=== PATIENT | female | born 1950 | race Caucasian/White ===

== ENCOUNTER 2018-08-01 16:00 | Observation (INO) | payer MEDICARE ==
[~2018-08-01] VITALS: Ht 160 cm; Wt 117.0 kg
[~2018-08-01 16:00] MED LIST: ALBU90OI INH; ALBU90OI6; ALBU90OI6 INH; ALLO300 PO; AMLO10 PO; AMOX500 PO; ANAS1 PO; ASCO1ER PO; ASCO500 PO; ASPI81CH PO; ASPI81EC; ATOR10; Allergy Medicat25 MG; BUPR150T2; CALGLU500 PO; CELE100; CITA20; CITA20 PO; CLAR500; CLIN300 PO; CYAN500 PO; FISH OIL PO; FLUT110OIA IH; FOSI10; FURO20; FURO40; FURO40 PO; GABA300 PO; HYDACE5 PO; HYDGUAL120 PO; LETR2.5 PO; LISI20; LORA.5 PO; LORA1; LORA1 PO; LOSARTAN POTAS100 MG PO; METF500 PO; NAPR500 PO; O; OLME20; OLME20 PO; OMEP20ER; OMEP20ER PO; OXYACE5T PO; PANT40 PO; POTA10T PO; POTA20PAC; POTCHL10ER; POTCHL20ER PO; PROACE100; PROM25 PO; QUIN325; RABE20; ROFE25; SIMV10 PO; Ultram50 MG PO; VITAMIN D31000 UNIT PO; VITB100 PO; Vitamin C100 M1 PO; [UNRECOGNIZED DRUG - OTHER] PO
[2018-08-01 17:17] LABS: BASOPHILS ABSOLUTE AUTO 0.03 K/mm3 (0.00-0.23); BASOPHILS PERCENT AUTO 1 % (0-2); EOSINOPHILS ABSOLUTE AUTO 0.13 K/mm3 (0.00-0.68); EOSINOPHILS PERCENT AUTO 2 % (0-6); Hematocrit 39.5 % (33.0-51.0); Hemoglobin 12.5 g/dL (11.5-16.0); IMMATURE GRAN ABSOLUTE AUTO 0.03 K/mm3 (0.00-0.10); IMMATURE GRAN PERCENT AUTO 1 % (0-1); LYMPHOCYTES ABSOLUTE AUTO 1.86 K/mm3 (0.84-5.20); LYMPHOCYTES PERCENT AUTO 29 % (21-46); MONOCYTES ABSOLUTE AUTO 0.69 K/mm3 (0.16-1.47); MONOCYTES PERCENT AUTO 11 % (4-13); Mean Corpuscular HGB 31.1 pg (26.0-34.0); Mean Corpuscular HGB Conc 31.6 g/dL (31.5-36.5); Mean Corpuscular Volume 98 fL (80-100); Mean Platelet Volume 11.2 fL (9.1-12.4); NEUTROPHILS ABSOLUTE AUTO 3.65 K/mm3 (1.96-9.15); NEUTROPHILS PERCENT AUTO 57 % (41-73); Platelet Count 249 K/mm3 (150-400); RDW Coefficient Variation 13.3 % (11.7-14.2); Red Blood Cell Count 4.02 M/mm3 (3.80-5.20); White Blood Cell Count 6.39 K/mm3 (4.00-11.30)
[2018-08-01 17:38] LABS: Alanine Aminotransfer (ALT/SGP 26 U/L (12-78); Albumin, Blood 3.7 g/dL (3.4-5.0); Albumin/Globulin Ratio 1.1 (0.8-1.8); Alk Phos 69 U/L (50-136); Anion Gap 5 mmol/L (6-16); Aspartate Aminotrans (AST/SGOT 11 U/L (12-37); Bilirubin, Total 0.3 mg/dL (0.1-1.0); Blood Urea Nitrogen 18 mg/dL (8-24); Bun/Creatinine Ratio 16.8 (12.0-20.0); CO2, Blood 29 mmol/L (21-32); Chloride, Blood 107 mmol/L (98-108); Creatinine, Blood 1.07 mg/dL (0.40-1.00); Globulin, Blood 3.3 g/dL (2.2-4.0); Glomerular Filtration Rate 55 (60-); Glucose, Blood 120 mg/dL (70-99); Potassium, Blood 4.2 mmol/L (3.5-5.5); Sodium, Blood 141 mmol/L (136-145); Troponin I <0.015 ng/mL (0.000-0.040)
[2018-08-01] MEDS ORDERED: PRAV20 PO (18:01)
[2018-08-01] MEDS ORDERED: PRIM50 PO (18:02)
[2018-08-01] MEDS ORDERED: Inderal40 MG PO (18:02)
[2018-08-01] MEDS ORDERED: GABA100 PO (20:49)
[2018-08-01] MEDS ORDERED: MELA3 PO (20:51)
[2018-08-02 05:12] LABS: Hematocrit 35.7 % (33.0-51.0); Hemoglobin 11.3 g/dL (11.5-16.0); Mean Corpuscular HGB 30.6 pg (26.0-34.0); Mean Corpuscular HGB Conc 31.7 g/dL (31.5-36.5); Mean Corpuscular Volume 97 fL (80-100); Mean Platelet Volume 11.3 fL (9.1-12.4); Platelet Count 215 K/mm3 (150-400); RDW Coefficient Variation 13.3 % (11.7-14.2); RDW Standard Deviation 47.3 fL (35.1-46.3); Red Blood Cell Count 3.69 M/mm3 (3.80-5.20); White Blood Cell Count 7.07 K/mm3 (4.00-11.30)
[2018-08-02 05:47] LABS: Anion Gap 8 mmol/L (6-16); Blood Urea Nitrogen 16 mg/dL (8-24); Bun/Creatinine Ratio 17.4 (12.0-20.0); CO2, Blood 26 mmol/L (21-32); Calcium, Blood 8.4 mg/dL (8.5-10.1); Chloride, Blood 109 mmol/L (98-108); Creatinine, Blood 0.92 mg/dL (0.40-1.00); Glomerular Filtration Rate >60 (60-); Glucose, Blood 107 mg/dL (70-99); Sodium, Blood 143 mmol/L (136-145)
== END 2018-08-02 12:15 | disposition home or self-care (01) ==
LOC: ER 16:00 → PCU 16:01
PROVIDERS: Nurse Practitioner Acute Care; Physician Assistant
DX: R07.9 Chest pain, unspecified (principal); M10.9 Gout, unspecified; E11.22 Type 2 diabetes mellitus with diabetic chronic kidney disease; I12.9 Hypertensive chronic kidney disease with stage 1 through stage 4 chronic kidney disease, or unspecified chronic kidney disease; N18.3 Chronic kidney disease, stage 3 (moderate); G47.30 Sleep apnea, unspecified; R00.1 Bradycardia, unspecified; E66.01 Morbid (severe) obesity due to excess calories; Z68.42 Body mass index [BMI] 45.0-49.9, adult; Z79.82 Long term (current) use of aspirin; Z79.899 Other long term (current) drug therapy; Z88.5 Allergy status to narcotic agent; Z79.01 Long term (current) use of anticoagulants
CPT/HCPCS: 36415; 71046; 80048; 80053; 82947; 83880; 84484; 85025; 85027; 93005; 93010; 94640; 94762; 96372; 99285-25; G0378; J1650; J7030

== ENCOUNTER 2019-01-13 13:26 | Emergency (ER) | payer MEDICARE ==
[~2019-01-13] VITALS: Ht 160 cm; Wt 113.4 kg
[~2019-01-13 13:26] MED LIST changes: +GABA100 PO; +Inderal40 MG PO; +MELA3 PO; +PRAV20 PO; +Primidone50 MG PO
[2019-01-13] MEDS ORDERED: MELATONIN5 M1 PO (15:18)
[2019-01-13] MEDS ORDERED: LORA.5 PO (15:18)
[2019-01-13] MEDS ORDERED: CRANBERRY450 MG PO (15:19)
[2019-01-13] MEDS ORDERED: CYAN500 PO (15:20)
[2019-01-13] MEDS ORDERED: CALCIUM (15:20)
[2019-01-13] MEDS ORDERED: Apple Cider Vi300 MG PO (15:20)
[2019-01-13] MEDS ORDERED: ASCO500 PO (15:21)
[2019-01-13] MEDS ORDERED: ERGO400 (15:21)
[2019-01-13] MEDS ORDERED: Percocet 5-3251 EACH PO (16:55)
== END 2019-01-13 17:18 | disposition home or self-care (01) ==
LOC: ER 13:26
DX: S62.324A Displaced fracture of shaft of fourth metacarpal bone, right hand, initial encounter for closed fracture (principal); S20.212A Contusion of left front wall of thorax, initial encounter; W18.30XA Fall on same level, unspecified, initial encounter; Z88.1 Allergy status to other antibiotic agents; Z91.011 Allergy to milk products; Z91.048 Other nonmedicinal substance allergy status; Z88.8 Allergy status to other drugs, medicaments and biological substances; Z88.7 Allergy status to serum and vaccine; Z79.899 Other long term (current) drug therapy; Z79.84 Long term (current) use of oral hypoglycemic drugs; Z79.82 Long term (current) use of aspirin; E11.9 Type 2 diabetes mellitus without complications; Z85.3 Personal history of malignant neoplasm of breast; Z87.891 Personal history of nicotine dependence; Z85.42 Personal history of malignant neoplasm of other parts of uterus
CPT/HCPCS: 29125; 71101; 73110; 99283-25

== ENCOUNTER → 2020-01-16 | Outpatient (CLI) | payer MEDICARE ==
[~2020-01-16] MED LIST changes: +Apple Cider Vi300 MG PO; +CALCIUM; +CRANBERRY450 MG PO; +ERGO400; +MELATONIN5 M1 PO; +Percocet 5-3251 EACH PO
[2020-01-16 17:48] LABS: Creatinine, Urine Random 45.5 mg/dL (27.00-270.00); Microalb/Creat Ratio UR, Rand 12.615 mg/g (0.000-30.000); Microalbumin, Random Urine 5.74 mg/L (0.000-20.000)
== END ==
LOC: LAB EV 12:49
PROVIDERS: Student in an Organized Health Care Education/Training Program
DX: E11.65 Type 2 diabetes mellitus with hyperglycemia (principal)
CPT/HCPCS: 82043; 82570

== ENCOUNTER 2020-11-07 15:31 | Emergency (ER) | payer MEDICARE ==
[~2020-11-07] VITALS: Ht 160 cm; Wt 124.7 kg
[2020-11-07] MEDS ORDERED: Aspir 8181 MG PO (15:48)
[2020-11-07] MEDS ORDERED: Percocet 5-3251 EACH PO (19:08)
== END 2020-11-07 19:20 | disposition home or self-care (01) ==
LOC: ER 15:31
DX: S52.502A Unspecified fracture of the lower end of left radius, initial encounter for closed fracture (principal); E11.9 Type 2 diabetes mellitus without complications; Z91.09 Other allergy status, other than to drugs and biological substances; Z91.011 Allergy to milk products; Z88.5 Allergy status to narcotic agent; Z79.84 Long term (current) use of oral hypoglycemic drugs; Z88.7 Allergy status to serum and vaccine; Z79.899 Other long term (current) drug therapy; Z87.891 Personal history of nicotine dependence; V58.4XXA Person boarding or alighting a pick-up truck or van injured in noncollision transport accident, initial encounter
CPT/HCPCS: 25605; 70450; 73090; 96374-59; 96375-59; 96376-59; 99284-25; A9270; J2270; J2405; J3010

== ENCOUNTER 2020-11-12 11:27 | Day surgery (SDC) | payer MEDICARE ==
[~2020-11-12] VITALS: Ht 160 cm; Wt 124.2 kg
[~2020-11-12 11:27] MED LIST changes: +Aspir 8181 MG PO
[2020-11-12] MEDS ORDERED: ACET500 (12:28)
[2020-11-12] MEDS ORDERED: ALBU90OI INH (12:52)
--- NOTE | 2020-11-12 13:29 | NUR ---
11/12/20 1329 Rex Reich PT NOTED TO HAVE SCRAPES TO BACK OF ELBOW WITHOUT BROKEN SKIN.
== END 2020-11-12 15:45 | disposition home or self-care (01) ==
LOC: ORSCSDS 11:27
PROVIDERS: Orthopaedic Surgery
PROC: 0PSJ04Z Reposition Left Radius with Internal Fixation Device, Open Approach (ICD-10-PCS; principal; 2020-11-12 13:00)
DX: S52.552A Other extraarticular fracture of lower end of left radius, initial encounter for closed fracture (principal); I10 Essential (primary) hypertension; J45.909 Unspecified asthma, uncomplicated; G47.33 Obstructive sleep apnea (adult) (pediatric); Z87.891 Personal history of nicotine dependence; E11.9 Type 2 diabetes mellitus without complications; N18.30 Chronic kidney disease, stage 3 unspecified; E66.01 Morbid (severe) obesity due to excess calories; Z68.42 Body mass index [BMI] 45.0-49.9, adult; Z79.84 Long term (current) use of oral hypoglycemic drugs; Z79.899 Other long term (current) drug therapy
CPT/HCPCS: 82947; C1713; J0171; J0360; J0690; J1100; J1885; J2250; J2405; J2704; J3010; J7120

== ENCOUNTER 2021-02-19 11:08 | Emergency (ER) | payer MEDICARE ==
[~2021-02-19] VITALS: Ht 160 cm; Wt 122.5 kg
[~2021-02-19 11:08] MED LIST changes: +ACET500
[2021-02-19 11:44] LABS: BASOPHILS ABSOLUTE AUTO 0.04 K/mm3 (0.00-0.23); BASOPHILS PERCENT AUTO 1 % (0-2); EOSINOPHILS ABSOLUTE AUTO 0.13 K/mm3 (0.00-0.68); EOSINOPHILS PERCENT AUTO 2 % (0-6); Hematocrit 40.2 % (33.0-51.0); Hemoglobin 12.6 g/dL (11.5-16.0); IMMATURE GRAN ABSOLUTE AUTO 0.03 K/mm3 (0.00-0.10); IMMATURE GRAN PERCENT AUTO 0 % (0-1); LYMPHOCYTES ABSOLUTE AUTO 1.79 K/mm3 (0.84-5.20); LYMPHOCYTES PERCENT AUTO 26 % (21-46); MONOCYTES ABSOLUTE AUTO 0.61 K/mm3 (0.16-1.47); MONOCYTES PERCENT AUTO 9 % (4-13); Mean Corpuscular HGB 31.4 pg (26.0-34.0); Mean Corpuscular HGB Conc 31.3 g/dL (31.5-36.5); Mean Corpuscular Volume 100 fL (80-100); Mean Platelet Volume 11.3 fL (9.1-12.4); NEUTROPHILS ABSOLUTE AUTO 4.19 K/mm3 (1.96-9.15); NEUTROPHILS PERCENT AUTO 62 % (41-73); Platelet Count 250 K/mm3 (150-400); RDW Coefficient Variation 13.7 % (11.7-14.2); RDW Standard Deviation 50.2 fL (35.1-46.3); Red Blood Cell Count 4.01 M/mm3 (3.80-5.20); White Blood Cell Count 6.79 K/mm3 (4.00-11.30)
[2021-02-19 12:09] LABS: Alanine Aminotransfer (ALT/SGP 21 U/L (12-78); Albumin, Blood 3.7 g/dL (3.4-5.0); Albumin/Globulin Ratio 1.1 (0.8-1.8); Alk Phos 55 U/L (50-136); Anion Gap 3 mmol/L (6-16); Aspartate Aminotrans (AST/SGOT 14 U/L (12-37); Bilirubin, Total 0.4 mg/dL (0.1-1.0); Blood Urea Nitrogen 20 mg/dL (8-24); Bun/Creatinine Ratio 18.7 (12.0-20.0); CO2, Blood 30 mmol/L (21-32); Calcium, Blood 9.6 mg/dL (8.5-10.1); Chloride, Blood 107 mmol/L (98-108); Creatinine, Blood 1.07 mg/dL (0.40-1.00); Globulin, Blood 3.3 g/dL (2.2-4.0); Glomerular Filtration Rate 51 (60-); Glucose, Blood 153 mg/dL (70-99); Potassium, Blood 4.6 mmol/L (3.5-5.5); Sodium, Blood 140 mmol/L (136-145); Troponin I <0.015 ng/mL (0.000-0.040)
== END 2021-02-19 13:56 | disposition home or self-care (01) ==
LOC: ER 11:08
PROVIDERS: Emergency Medicine
DX: R00.2 Palpitations (principal); R42 Dizziness and giddiness; E11.9 Type 2 diabetes mellitus without complications; Z79.84 Long term (current) use of oral hypoglycemic drugs; Z79.899 Other long term (current) drug therapy
CPT/HCPCS: 36415; 80053; 84484; 85025; 93005; 93010; 99285-25

== ENCOUNTER → 2022-03-21 | Outpatient (CLI) | payer MEDICARE ==
[2022-03-21 14:32] LABS: Microalbumin, Random Urine 11.4 mg/L (0.000-20.000)
== END | disposition home or self-care (01) ==
LOC: LAB 13:00 → LAB SHORT 13:00
PROVIDERS: Internal Medicine Endocrinology, Diabetes & Metabolism
DX: E11.29 Type 2 diabetes mellitus with other diabetic kidney complication (principal)
CPT/HCPCS: 82043; 82570

== ENCOUNTER 2023-03-16 11:08 | Emergency (ER) | payer MEDICARE ==
[~2023-03-16] VITALS: Ht 160 cm; Wt 122.5 kg
[~2023-03-16 11:08] MED LIST changes: -ERGO400; +ERGO400 PO
[2023-03-16 11:45] LABS: BASOPHILS ABSOLUTE AUTO 0.02 K/mm3 (0.00-0.23); BASOPHILS PERCENT AUTO 0 % (0-2); EOSINOPHILS ABSOLUTE AUTO 0.01 K/mm3 (0.00-0.68); EOSINOPHILS PERCENT AUTO 0 % (0-6); Hematocrit 39.2 % (33.0-51.0); Hemoglobin 12.9 g/dL (11.5-16.0); IMMATURE GRAN ABSOLUTE AUTO 0.03 K/mm3 (0.00-0.10); IMMATURE GRAN PERCENT AUTO 0 % (0-1); LYMPHOCYTES ABSOLUTE AUTO 1.18 K/mm3 (0.84-5.20); LYMPHOCYTES PERCENT AUTO 17 % (21-46); MONOCYTES ABSOLUTE AUTO 0.96 K/mm3 (0.16-1.47); MONOCYTES PERCENT AUTO 13 % (4-13); Mean Corpuscular HGB 31.9 pg (26.0-34.0); Mean Corpuscular HGB Conc 32.9 g/dL (31.5-36.5); Mean Corpuscular Volume 97 fL (80-100); Mean Platelet Volume 11.3 fL (9.1-12.4); NEUTROPHILS ABSOLUTE AUTO 4.95 K/mm3 (1.96-9.15); NEUTROPHILS PERCENT AUTO 69 % (41-73); Platelet Count 208 K/mm3 (150-400); RDW Coefficient Variation 13.9 % (11.7-14.2); Red Blood Cell Count 4.04 M/mm3 (3.80-5.20); White Blood Cell Count 7.15 K/mm3 (4.00-11.30)
[2023-03-16 11:55] LABS: Albumin, Blood 3.2 g/dL (3.4-5.0); Albumin/Globulin Ratio 0.9 (0.8-1.8); Bilirubin, Total 0.4 mg/dL (0.1-1.0); Bun/Creatinine Ratio 20.5 (12.0-20.0); Calcium, Blood 8.5 mg/dL (8.5-10.1); Creatinine, Blood 1.17 mg/dL (0.40-1.00); Globulin, Blood 3.5 g/dL (2.2-4.0); Potassium, Blood 4.4 mmol/L (3.5-5.5); Total Protein, Blood 6.7 g/dL (6.4-8.2)
[2023-03-16 15:04] LABS: Source, Urine Clean Catch
[2023-03-16 15:17] LABS: Appearance, Urine Hazy (Clear); Bilirubin, Urine Neg (Neg); Blood, Urine Neg (Neg); Color, Urine Yellow (P-Yellow); Glucose Qualitative, Urine Neg (Neg); Ketones, Urine Neg (Neg); Leukocyte Esterase, Urine Neg (Neg); Nitrite, Urine Neg (Neg); Protein, Urine 1+ (Neg); Urobilinogen, Urine NORM (Normal)
[2023-03-16 15:28] LABS: Bacteria Mod /hpf; Red Blood Cells, Urine 0-2 /hpf (0-2); Squamous Epithelial Cells Few /hpf (Few); White Blood Cells, Urine 0-2 /hpf (0-5)
[2023-03-16 16:16] LABS: BASOPHILS ABSOLUTE AUTO 0.01 K/mm3 (0.00-0.23); BASOPHILS PERCENT AUTO 0 % (0-2); EOSINOPHILS ABSOLUTE AUTO 0.01 K/mm3 (0.00-0.68); EOSINOPHILS PERCENT AUTO 0 % (0-6); Hemoglobin 13.3 g/dL (11.5-16.0); IMMATURE GRAN ABSOLUTE AUTO 0.03 K/mm3 (0.00-0.10); IMMATURE GRAN PERCENT AUTO 1 % (0-1); LYMPHOCYTES ABSOLUTE AUTO 1.14 K/mm3 (0.84-5.20); LYMPHOCYTES PERCENT AUTO 19 % (21-46); MONOCYTES ABSOLUTE AUTO 0.81 K/mm3 (0.16-1.47); MONOCYTES PERCENT AUTO 13 % (4-13); Mean Corpuscular HGB 31.4 pg (26.0-34.0); Mean Corpuscular HGB Conc 32.4 g/dL (31.5-36.5); Mean Corpuscular Volume 97 fL (80-100); Mean Platelet Volume 11.5 fL (9.1-12.4); NEUTROPHILS ABSOLUTE AUTO 4.17 K/mm3 (1.96-9.15); NEUTROPHILS PERCENT AUTO 68 % (41-73); Platelet Count 174 K/mm3 (150-400); RDW Standard Deviation 49.9 fL (35.1-46.3); Red Blood Cell Count 4.24 M/mm3 (3.80-5.20); White Blood Cell Count 6.17 K/mm3 (4.00-11.30)
[2023-03-16 16:32] LABS: Bun/Creatinine Ratio 20.3 (12.0-20.0); Calcium, Blood 9.2 mg/dL (8.5-10.1); Creatinine, Blood 1.18 mg/dL (0.40-1.00); Potassium, Blood 4.4 mmol/L (3.5-5.5)
[2023-03-16 16:42] LABS: Magnesium, Blood 2.2 mg/dL (1.6-2.4); Phosphorus, Blood 3.1 mg/dL (2.5-4.9)
[2023-03-16 16:54] LABS: Influenza A, PCR NEGATIVE (NEGATIVE); Influenza B, PCR NEGATIVE (NEGATIVE); Resp Syncytial Virus, PCR NEGATIVE (NEGATIVE)
[2023-03-16 17:30] VITALS: BP 152/103
[2023-03-16] MEDS ORDERED: AZIT250 PO (18:08)
[2023-03-16 20:47] LABS: SARS-Cov-2 (COVID-19) PCR, MMC POSITIVE (NEGATIVE)
== END 2023-03-16 18:20 | disposition home or self-care (01) ==
LOC: ER 11:08
PROVIDERS: Emergency Medicine; Physician Assistant
DX: S09.90XA Unspecified injury of head, initial encounter (principal); U07.1 COVID-19; E11.9 Type 2 diabetes mellitus without complications; G47.30 Sleep apnea, unspecified; J45.909 Unspecified asthma, uncomplicated; I10 Essential (primary) hypertension; Z79.84 Long term (current) use of oral hypoglycemic drugs; Z79.82 Long term (current) use of aspirin; Z79.899 Other long term (current) drug therapy; Z91.048 Other nonmedicinal substance allergy status; Z88.7 Allergy status to serum and vaccine; Z91.011 Allergy to milk products; W18.30XA Fall on same level, unspecified, initial encounter; Y93.G3 Activity, cooking and baking; Y92.000 Kitchen of unspecified non-institutional (private) residence as the place of occurrence of the external cause
CPT/HCPCS: 0241U; 71045; 80048; 80053; 81001; 83735; 84100; 84484; 85025; 87086; 93005; 93010; 94640; 94664; 96374; 99285-25; J2930

== ENCOUNTER 2023-03-18 13:01 | Inpatient (IN) | payer MEDICARE ==
[~2023-03-18] VITALS: Ht 160 cm; Wt 122.0 kg
[~2023-03-18 13:01] MED LIST changes: +AZIT250 PO
[2023-03-18 14:38] LABS: Albumin, Blood 2.9 g/dL (3.4-5.0); Albumin/Globulin Ratio 0.8 (0.8-1.8); Bilirubin, Total 0.5 mg/dL (0.1-1.0); Bun/Creatinine Ratio 19.4 (12.0-20.0); Creatinine, Blood 0.98 mg/dL (0.40-1.00); Globulin, Blood 3.5 g/dL (2.2-4.0); Potassium, Blood 4.3 mmol/L (3.5-5.5); Total Protein, Blood 6.4 g/dL (6.4-8.2)
[2023-03-18 14:40] LABS: BASOPHILS ABSOLUTE AUTO 0.02 K/mm3 (0.00-0.23); BASOPHILS PERCENT AUTO 0 % (0-2); EOSINOPHILS PERCENT AUTO 0 % (0-6); Hematocrit 36.4 % (33.0-51.0); IMMATURE GRAN ABSOLUTE AUTO 0.05 K/mm3 (0.00-0.10); IMMATURE GRAN PERCENT AUTO 1 % (0-1); LYMPHOCYTES ABSOLUTE AUTO 0.87 K/mm3 (0.84-5.20); LYMPHOCYTES PERCENT AUTO 9 % (21-46); MONOCYTES ABSOLUTE AUTO 0.79 K/mm3 (0.16-1.47); MONOCYTES PERCENT AUTO 8 % (4-13); Mean Corpuscular HGB 31.3 pg (26.0-34.0); Mean Corpuscular Volume 95 fL (80-100); Mean Platelet Volume 11.6 fL (9.1-12.4); NEUTROPHILS ABSOLUTE AUTO 8.06 K/mm3 (1.96-9.15); NEUTROPHILS PERCENT AUTO 82 % (41-73); Platelet Count 205 K/mm3 (150-400); RDW Coefficient Variation 13.8 % (11.7-14.2); RDW Standard Deviation 48.4 fL (35.1-46.3); Red Blood Cell Count 3.83 M/mm3 (3.80-5.20); White Blood Cell Count 9.79 K/mm3 (4.00-11.30)
[2023-03-18 18:12] VITALS: BP 130/66
[2023-03-18] MEDS ORDERED: Acetaminophen650 M1 PO (18:28)
[2023-03-18] MEDS ORDERED: FURO40 PO (18:36)
--- NOTE | 2023-03-18 18:45 | NUR ---
PT ARRIVED AT 1815 AOX4 ON 2L O2. PT DOES HAVE A MILD COUGH. NO DISTRESS NOTED. CALL LIGHT WITHIN REACH. ENHANCED PRECAUTIONS IN PLACE. WILL CONTINUE TO MONITOR. IGNITION ASSESSMENT COMPLETED AND NO HAZARDS FOUND. PT VERBALIZED UNDERSTANDING.
[2023-03-18 19:56] VITALS: BP 133/64
[2023-03-19 03:21] VITALS: BP 145/68
[2023-03-19 05:48] LABS: BASOPHILS ABSOLUTE AUTO 0.01 K/mm3 (0.00-0.23); BASOPHILS PERCENT AUTO 0 % (0-2); EOSINOPHILS PERCENT AUTO 0 % (0-6); Hematocrit 36.5 % (33.0-51.0); Hemoglobin 11.8 g/dL (11.5-16.0); IMMATURE GRAN ABSOLUTE AUTO 0.08 K/mm3 (0.00-0.10); IMMATURE GRAN PERCENT AUTO 1 % (0-1); LYMPHOCYTES PERCENT AUTO 9 % (21-46); MONOCYTES ABSOLUTE AUTO 0.44 K/mm3 (0.16-1.47); MONOCYTES PERCENT AUTO 5 % (4-13); Mean Corpuscular HGB 31.2 pg (26.0-34.0); Mean Corpuscular HGB Conc 32.3 g/dL (31.5-36.5); Mean Corpuscular Volume 97 fL (80-100); Mean Platelet Volume 11.7 fL (9.1-12.4); NEUTROPHILS ABSOLUTE AUTO 7.81 K/mm3 (1.96-9.15); NEUTROPHILS PERCENT AUTO 85 % (41-73); Platelet Count 222 K/mm3 (150-400); RDW Coefficient Variation 13.6 % (11.7-14.2); RDW Standard Deviation 48.4 fL (35.1-46.3); Red Blood Cell Count 3.78 M/mm3 (3.80-5.20); White Blood Cell Count 9.14 K/mm3 (4.00-11.30)
[2023-03-19 06:14] LABS: Albumin, Blood 2.7 g/dL (3.4-5.0); Albumin/Globulin Ratio 0.7 (0.8-1.8); Bilirubin, Total 0.3 mg/dL (0.1-1.0); Bun/Creatinine Ratio 23.6 (12.0-20.0); Calcium, Blood 8.8 mg/dL (8.5-10.1); Creatinine, Blood 1.1 mg/dL (0.40-1.00); Globulin, Blood 3.9 g/dL (2.2-4.0); Potassium, Blood 4.3 mmol/L (3.5-5.5); Total Protein, Blood 6.6 g/dL (6.4-8.2)
--- NOTE | 2023-03-19 07:04 | NUR ---
SHIFT SUMMARY PT SITTING UP IN BED EATING DINNER, PT ON 2L OXYGEN, ADMISSION ASSESSMENT DONE- IGNITION ASSESSMENT DONE, PT DENIED HAVE ANY ITEMS OF IGNITION, PT TOOK SCHEDULED MEDS WITHOUT PROBLEMS- PT REQUESTED TYLENOL FOR RESTLESS LEGS- PT REPORTED THAT SHE HAS RESTLESS LEGS BUT USUALLY CAN STRETCH THE LEGS OUT IN HER DOUGLAS BED TO RESOLVE IT- RT APPLIED OXYGEN TO CPAP- PT SLEPT T/O NIGHT
[2023-03-19 07:56] VITALS: BP 149/91
[2023-03-19 15:09] VITALS: BP 126/79
--- NOTE | 2023-03-19 17:56 | NUR ---
NO ACUTE CHANGES AT THIS TIME. PT IS CURRENTLY ON 5L NS CANULA AND DOING WELL. PT AOX4 AND COOPERATIVE OF CARE. PT HAS BEEN SITTING UP IN CHAIR FOR PART OF THE DAY. NO DISTRESS NOTED AND USES CALL LIGHT APPROPRIATELY.
--- NOTE | 2023-03-19 17:58 | NUR ---
IGNITION ASSESSMENT DONE ON HOURLY ROUNDING AND NO HAZARDS FOUND.
[2023-03-19 19:57] VITALS: BP 126/64
--- NOTE | 2023-03-20 04:54 | NUR ---
SHIFT SUMMARY. SHIFT HAS BEEN LARGELY UNREMARKABLE. PT TOOK 2100 MEDICATIONS WITHOUT DIFFICULTY AND HAS SLEPT SPORADICALLY THROUGHOUT THE REMAINDER OF SHIFT. CALLS APPROPRIATELY. MINIMAL ASSISTANCE TRANSFER. CPAP ON THROUGH MOST OF THIS SHIFT, SATTING WELL. COMPLAINTS OF MILD HEADACHE EARLY IN SHIFT, ALLEVIATED WITH PRN TYLENOL. BED LOCKED IN LOWEST POSITION. CALL LIGHT LEFT WITHIN REACH.
[2023-03-20 05:01] LABS: BASOPHILS ABSOLUTE AUTO 0.02 K/mm3 (0.00-0.23); BASOPHILS PERCENT AUTO 0 % (0-2); EOSINOPHILS PERCENT AUTO 0 % (0-6); Hemoglobin 11.3 g/dL (11.5-16.0); IMMATURE GRAN ABSOLUTE AUTO 0.08 K/mm3 (0.00-0.10); IMMATURE GRAN PERCENT AUTO 1 % (0-1); LYMPHOCYTES ABSOLUTE AUTO 0.91 K/mm3 (0.84-5.20); LYMPHOCYTES PERCENT AUTO 7 % (21-46); MONOCYTES ABSOLUTE AUTO 1.09 K/mm3 (0.16-1.47); MONOCYTES PERCENT AUTO 9 % (4-13); Mean Corpuscular HGB 31.1 pg (26.0-34.0); Mean Corpuscular HGB Conc 32.3 g/dL (31.5-36.5); Mean Corpuscular Volume 96 fL (80-100); Mean Platelet Volume 11.5 fL (9.1-12.4); NEUTROPHILS ABSOLUTE AUTO 10.76 K/mm3 (1.96-9.15); NEUTROPHILS PERCENT AUTO 84 % (41-73); Platelet Count 225 K/mm3 (150-400); RDW Coefficient Variation 13.6 % (11.7-14.2); RDW Standard Deviation 48.5 fL (35.1-46.3); Red Blood Cell Count 3.63 M/mm3 (3.80-5.20); White Blood Cell Count 12.86 K/mm3 (4.00-11.30)
[2023-03-20 05:42] LABS: C-REACTIVE PROTEIN, EXT RANGE 7.08 mg/dL (0.000-0.300); Magnesium, Blood 2.1 mg/dL (1.6-2.4)
[2023-03-20 05:43] LABS: Albumin, Blood 2.4 g/dL (3.4-5.0); Albumin/Globulin Ratio 0.7 (0.8-1.8); Bilirubin, Total 0.3 mg/dL (0.1-1.0); Bun/Creatinine Ratio 28.9 (12.0-20.0); Calcium, Blood 8.8 mg/dL (8.5-10.1); Creatinine, Blood 1.14 mg/dL (0.40-1.00); Globulin, Blood 3.6 g/dL (2.2-4.0); Phosphorus, Blood 2.8 mg/dL (2.5-4.9); Potassium, Blood 4.6 mmol/L (3.5-5.5)
[2023-03-20 05:51] VITALS: BP 141/78
[2023-03-20 08:40] VITALS: BP 148/72
[2023-03-20 16:09] VITALS: BP 137/69
--- NOTE | 2023-03-20 18:38 | NUR ---
SHIFT SUMMARY: PT A&O X4. PT PLEASANT AND COOPERATIVE WITH ALL CARE. PT STATES HER HOME FLOODED AND SHE HAS NOWHERE TO RETURN TO BESIDES HOTEL. PT SOB THROUGHOUT SHIFT. CONTINUOUS BIOX ON. 02 RANGING FROM HIGH 80'S TO LOW 90'S. PT NEEDING INCREASE 02 TO MAINTAIN 02 SATS. PT PRODUCING LOTS OF DARK PHLEGM. ONE PERSON ASSIST TO BSC. IV IN R. HAND LEAKING PRIOR TO 1800 ABX. TUNDE RN ATTEMPT TO PLACE NEW BUT UNSUCCESSFUL. WILL DISCUSS WITH REFRACTORY TILE HELPER RN. CALL LIGHT IN REACH. BED IN LOWEST POSITION. WILL CONTINUE TO MONITOR.
[2023-03-20 20:29] VITALS: BP 151/76
--- NOTE | 2023-03-21 03:48 | NUR ---
SHIFT SUMMARY. SHIFT HAS BEEN UNREMARKABLE. PT HAS BEEN SATTING WELL ON 8 L O2 VIA NC WITH CPAP ON THROUGHOUT MOST OF SHIFT. ONLY MILD COMPLAINTS OF HEADACHE EARLY IN SHIFT, ALLEVIATED WITH PRN TYLENOL. NO COMPLAINTS SINCE. PT CALLS APPROPRIATELY AND IS EASY SBA TRANSFER TO BEDSIDE COMMODE. AOX4, PLEASANT, COOPERATIVE WITH CARE. BED LOCKED IN LOWEST POSITION. CALL LIGHT LEFT WITHIN REACH.
[2023-03-21 03:55] VITALS: BP 186/90
[2023-03-21 04:37] VITALS: BP 161/73
[2023-03-21 06:45] LABS: BASOPHILS ABSOLUTE AUTO 0.03 K/mm3 (0.00-0.23); BASOPHILS PERCENT AUTO 0 % (0-2); EOSINOPHILS PERCENT AUTO 0 % (0-6); Hematocrit 35.2 % (33.0-51.0); Hemoglobin 11.6 g/dL (11.5-16.0); IMMATURE GRAN ABSOLUTE AUTO 0.21 K/mm3 (0.00-0.10); IMMATURE GRAN PERCENT AUTO 2 % (0-1); LYMPHOCYTES ABSOLUTE AUTO 1.06 K/mm3 (0.84-5.20); LYMPHOCYTES PERCENT AUTO 9 % (21-46); MONOCYTES ABSOLUTE AUTO 1.16 K/mm3 (0.16-1.47); MONOCYTES PERCENT AUTO 10 % (4-13); Mean Corpuscular HGB 31.4 pg (26.0-34.0); Mean Corpuscular Volume 95 fL (80-100); NEUTROPHILS ABSOLUTE AUTO 9.08 K/mm3 (1.96-9.15); NEUTROPHILS PERCENT AUTO 79 % (41-73); Platelet Count 277 K/mm3 (150-400); RDW Coefficient Variation 13.7 % (11.7-14.2); RDW Standard Deviation 47.5 fL (35.1-46.3); Red Blood Cell Count 3.69 M/mm3 (3.80-5.20); White Blood Cell Count 11.54 K/mm3 (4.00-11.30)
[2023-03-21 07:07] LABS: Albumin, Blood 2.5 g/dL (3.4-5.0); Albumin/Globulin Ratio 0.7 (0.8-1.8); Bilirubin, Total 0.3 mg/dL (0.1-1.0); Bun/Creatinine Ratio 31.2 (12.0-20.0); Calcium, Blood 9.1 mg/dL (8.5-10.1); Creatinine, Blood 0.93 mg/dL (0.40-1.00); Globulin, Blood 3.5 g/dL (2.2-4.0); Potassium, Blood 4.4 mmol/L (3.5-5.5)
[2023-03-21 07:28] VITALS: BP 186/92
[2023-03-21 16:33] VITALS: BP 159/64
--- NOTE | 2023-03-21 17:12 | NUR ---
SHIFT SUMMARY: PT A&O X4. PT PLEASANT AND COOPERATIVE WITH ALL CARE. PT CURRENTLY ON 8L HIGH FLOW WITH 02 SAT RANGING FROM HIGH 80'S TO LOW 90'S. SOB W/ EXERTION. PT STATED SHE TAKES OTC NASAL SPRAY AT HOME DAILY. CALL HOSPITALIST AND RECEIVED ORDER. PUREWICK PLACED BY THIS RN AND DENTAL SERVICES DIRECTOR. PT HAVING STRESS INCONTINENCE W/COUGH AND NOSE BLOWING. IV ABX CONTINUING W/O COMPLICATIONS. CALL LIGHT IN REACH. BED IN LOWEST POSITION. WILL CONTINUE TO MONITOR.
[2023-03-21 19:54] VITALS: BP 169/79
--- NOTE | 2023-03-22 04:05 | NUR ---
SHIFT SUMMARY. SHIFT HAS BEEN LARGELY UNREMARKABLE. PT TOLERATED 2100 MEDICATION ADMINISTRATION AND SHIFT ASSESSMENT WELL AND HAS BEEN SLEEPING THROUGH MOST OF SHIFT THEREAFTER. SATTING WELL ON SUPPLEMENTAL O2 AND CPAP, CONTINUOUS PULSE OX IN PLACE. NO REPORTED PAIN. PUREWICK IN PLACE AND DRAINING WELL. CALLS APPROPRIATELY. BED LOCKED IN LOWEST POSITION. CALL LIGHT LEFT WITHIN REACH.
[2023-03-22 04:29] VITALS: BP 132/84
[2023-03-22 05:02] LABS: BASOPHILS ABSOLUTE AUTO 0.02 K/mm3 (0.00-0.23); BASOPHILS PERCENT AUTO 0 % (0-2); EOSINOPHILS ABSOLUTE AUTO 0.01 K/mm3 (0.00-0.68); EOSINOPHILS PERCENT AUTO 0 % (0-6); Hematocrit 36.9 % (33.0-51.0); IMMATURE GRAN ABSOLUTE AUTO 0.24 K/mm3 (0.00-0.10); IMMATURE GRAN PERCENT AUTO 2 % (0-1); LYMPHOCYTES ABSOLUTE AUTO 1.52 K/mm3 (0.84-5.20); LYMPHOCYTES PERCENT AUTO 13 % (21-46); MONOCYTES ABSOLUTE AUTO 1.45 K/mm3 (0.16-1.47); MONOCYTES PERCENT AUTO 12 % (4-13); Mean Corpuscular HGB Conc 32.5 g/dL (31.5-36.5); Mean Corpuscular Volume 95 fL (80-100); NEUTROPHILS ABSOLUTE AUTO 8.42 K/mm3 (1.96-9.15); NEUTROPHILS PERCENT AUTO 72 % (41-73); NRBC ABSOLUTE 0.02 K/mm3 (0.00-0.02); NRBC Auto 0.2 /100 WBC (0.0-0.2); Platelet Count 297 K/mm3 (150-400); RDW Coefficient Variation 13.6 % (11.7-14.2); RDW Standard Deviation 47.2 fL (35.1-46.3); Red Blood Cell Count 3.87 M/mm3 (3.80-5.20); White Blood Cell Count 11.66 K/mm3 (4.00-11.30)
[2023-03-22 05:29] LABS: C-REACTIVE PROTEIN, EXT RANGE 3.42 mg/dL (0.000-0.300)
[2023-03-22 05:32] LABS: Albumin, Blood 2.5 g/dL (3.4-5.0); Albumin/Globulin Ratio 0.7 (0.8-1.8); Bilirubin, Total 0.4 mg/dL (0.1-1.0); Bun/Creatinine Ratio 23.8 (12.0-20.0); Calcium, Blood 9.2 mg/dL (8.5-10.1); Creatinine, Blood 1.01 mg/dL (0.40-1.00); Globulin, Blood 3.7 g/dL (2.2-4.0); Potassium, Blood 4.5 mmol/L (3.5-5.5); Total Protein, Blood 6.2 g/dL (6.4-8.2)
[2023-03-22 08:25] VITALS: BP 146/79
[2023-03-22 16:05] VITALS: BP 125/74
--- NOTE | 2023-03-22 19:22 | NUR ---
SHIFT SUMMARY PATIENT WITH INCREASE IN WHEEZES THIS AM, DENIES ANY INCREASE IN SHORTNESS OF BREATH, STATES SHE DOES FEEL BETTER WITH SOLUMEDROL THIS EVENING. NO ACUTE EVENTS DURING SHIFT.
[2023-03-22 21:47] VITALS: BP 156/71
[2023-03-23 04:26] VITALS: BP 158/73
[2023-03-23 05:07] LABS: BASOPHILS ABSOLUTE AUTO 0.04 K/mm3 (0.00-0.23); BASOPHILS PERCENT AUTO 0 % (0-2); EOSINOPHILS PERCENT AUTO 0 % (0-6); Hematocrit 38.4 % (33.0-51.0); Hemoglobin 12.5 g/dL (11.5-16.0); IMMATURE GRAN ABSOLUTE AUTO 0.46 K/mm3 (0.00-0.10); IMMATURE GRAN PERCENT AUTO 5 % (0-1); LYMPHOCYTES PERCENT AUTO 8 % (21-46); MONOCYTES ABSOLUTE AUTO 0.35 K/mm3 (0.16-1.47); MONOCYTES PERCENT AUTO 4 % (4-13); Mean Corpuscular HGB 30.7 pg (26.0-34.0); Mean Corpuscular HGB Conc 32.6 g/dL (31.5-36.5); Mean Corpuscular Volume 94 fL (80-100); Mean Platelet Volume 11.1 fL (9.1-12.4); NEUTROPHILS ABSOLUTE AUTO 7.59 K/mm3 (1.96-9.15); NEUTROPHILS PERCENT AUTO 83 % (41-73); Platelet Count 331 K/mm3 (150-400); RDW Coefficient Variation 13.1 % (11.7-14.2); RDW Standard Deviation 44.9 fL (35.1-46.3); Red Blood Cell Count 4.07 M/mm3 (3.80-5.20); White Blood Cell Count 9.14 K/mm3 (4.00-11.30)
[2023-03-23 06:10] LABS: Albumin, Blood 2.4 g/dL (3.4-5.0); Albumin/Globulin Ratio 0.6 (0.8-1.8); Bilirubin, Total 0.5 mg/dL (0.1-1.0); Bun/Creatinine Ratio 28.2 (12.0-20.0); Calcium, Blood 9.1 mg/dL (8.5-10.1); Creatinine, Blood 0.89 mg/dL (0.40-1.00); Globulin, Blood 3.8 g/dL (2.2-4.0); Potassium, Blood 4.5 mmol/L (3.5-5.5); Total Protein, Blood 6.2 g/dL (6.4-8.2)
--- NOTE | 2023-03-23 06:30 | NUR ---
Shift Summary Pt on 10L O2 hi-flow NC during the day and 10L O2 bleed in CPAP at night. O2 saturation stayed above 90% t/o the night on her CPAP, monitored via continuous pulse ox. Pt did complain of full body aches which was well controlled with Tylenol. Pt states Tylenol is the only pain medication that works for her. She slept well t/o the night. Purewick in place and draining well. Pt AOx4 and remained in bed t/o the night.
[2023-03-23 09:40] VITALS: BP 154/73
[2023-03-23 13:34] VITALS: BP 188/89
[2023-03-23 13:37] VITALS: BP 170/87
[2023-03-23 15:42] VITALS: BP 157/78
--- NOTE | 2023-03-23 19:09 | NUR ---
SHIFT SUMMARY PATIENT UP TO CHAIR JUST BEFORE DINNER, TOLERATING WELL. 9.5LPM O2 SAT AT 92%. PATIENT NO LONGER COUGHING UP BROWN, TURNING TO MORE GREEN COLOR. NO ACUTE EVENTS DURING SHIFT. BED IN LOW POSITION, CALL LIGHT IN REACH. PATIENT CALLS APPROPRIATELY.
[2023-03-23 20:13] VITALS: BP 150/93
[2023-03-24 04:51] VITALS: BP 178/84
--- NOTE | 2023-03-24 06:36 | NUR ---
Shift Summary While pt was awake I reduced O2 flow down to 4L and she maintaned O2 sat > 92%. While alseep on CPAP she still required 10L bleed in and her O2 sat remained around 91%. Pt AOx4, on purewick, remained in bed t/o the night and slept well. Pt's lungs are sounding less wheezy than yesterday and she states she is noticably better.
[2023-03-24 08:08] VITALS: BP 151/91
[2023-03-24 14:39] VITALS: BP 147/65
--- NOTE | 2023-03-24 20:02 | NUR ---
DAY SHIFT SUMMARY A/OX4. NO ACUTE EVENTS. 2L OF O2 NASAL CANNULA (REQUIRED 10 L AT NIGHT WITH CPAP). REPORTS FEELING BETTER. ABLE TO MAKE NEEDS KNOWN; CALLS APPROPRIATELY.
[2023-03-24 20:08] VITALS: BP 149/107
[2023-03-25 03:25] VITALS: BP 158/88
[2023-03-25 08:02] VITALS: BP 161/92
[2023-03-25 14:24] VITALS: BP 141/78
[2023-03-25 15:46] VITALS: BP 135/55
--- NOTE | 2023-03-25 18:16 | NUR ---
SHIFT SUMMARY PT AXO, PLEASANT AND COOPERATIVE WITH CARE THOUGH [place] WITH HEARING AIDES AT HOME. VSS ALTHOUGH BRADYCARDIA NOTED WITH VS. DR HERNNÁDEZ NOTIFIED WHO ORDERED THIS NURSE HOLD DINNER DOSE OF PROPRANOLOL, SEE EMAR. CBG AC AND HS, MEDICATED PER EMAR. PT ENCOURAGED OOB AND TO USE FLUTTER VALVE. PT ON 5L 91-93%. PT EDUCATED ABOUT BLOOD SUGAR CONTROL AND MONITORING AT HOME. IV PATENT AND SALINE LOCKED. BED IN LOW POSITION, CALL LIGHT WITHIN REACH.
[2023-03-25 19:04] VITALS: BP 143/84
[2023-03-26 03:18] VITALS: BP 131/69
--- NOTE | 2023-03-26 06:39 | NUR ---
SHIFT SUMMERY. PT RETING IN CHAIR FOR SOMETIME LAST NIGHT BEFOR REQUESTING TO GO TO BED. PT HAS A VERY DRY NON PRODUCTIVE COUGH, PT USING FLUTTER VALVE. PT MEDICATEDD WITH TYLENOL FOR PAIN AT HS. FIRE SAFETY REVIEWED.
[2023-03-26 14:48] VITALS: BP 137/70
--- NOTE | 2023-03-26 18:26 | NUR ---
SHIFT SUMMARY PT AxOx4. PLEASANT AND COOPERATIVE WITH CARE. PT WEANED HER O2 NC TODAY FROM 5LPM DOWN TO 1LPM. PT IS BREATHING WITHOUT DIFFICULTY WITH SATS AT 94% ON 1LPM. PT WAS UP IN RECLINER CHAIR FOR PART OF THE DAY THIS SHIFT. PT/OT ORDERED FOR EVAL AND TREAT. PER PROVIDER, PT WILL LIKELY STAY INPATIENT UNTIL AT LEAST SUNDAY. PT'S SON IN FOR VISIT THIS SHIFT, UPDATED ON PLAN BY PROVIDER. PT HAD SHOWER TODAY, [employer] CHANGED OUT. PT IS CURRENTLY RESTING IN BED WITH CALL LIGHT IN REACH. DENIES ANY NEEDS AT THIS TIME. PT WAS EDUCATED ON FIRE RISK AND SAFETY WITH A VERBALIZED UNDERSTANDING.
[2023-03-26 20:53] VITALS: BP 134/99
--- NOTE | 2023-03-27 03:40 | NUR ---
SHIFT SUMMERY. PT RESTING IN BED. PT LUNGS SOUNDING MORE CLEAR , PT STILL HAS A DRY COUGH. PT NOW ON 2L PER NC OF O2. CALL LIGHT IN REACH, PT HAS ON [employer]. FIRE SAFETY REVIEWED.
[2023-03-27 04:47] VITALS: BP 141/73
[2023-03-27 04:47] LABS: BASOPHILS ABSOLUTE AUTO 0.04 K/mm3 (0.00-0.23); BASOPHILS PERCENT AUTO 0 % (0-2); EOSINOPHILS ABSOLUTE AUTO 0.18 K/mm3 (0.00-0.68); EOSINOPHILS PERCENT AUTO 2 % (0-6); Hematocrit 38.9 % (33.0-51.0); Hemoglobin 12.7 g/dL (11.5-16.0); IMMATURE GRAN ABSOLUTE AUTO 0.51 K/mm3 (0.00-0.10); IMMATURE GRAN PERCENT AUTO 5 % (0-1); LYMPHOCYTES ABSOLUTE AUTO 1.91 K/mm3 (0.84-5.20); LYMPHOCYTES PERCENT AUTO 19 % (21-46); MONOCYTES ABSOLUTE AUTO 1.05 K/mm3 (0.16-1.47); MONOCYTES PERCENT AUTO 10 % (4-13); Mean Corpuscular HGB 30.9 pg (26.0-34.0); Mean Corpuscular HGB Conc 32.6 g/dL (31.5-36.5); Mean Corpuscular Volume 95 fL (80-100); Mean Platelet Volume 10.8 fL (9.1-12.4); NEUTROPHILS PERCENT AUTO 64 % (41-73); Platelet Count 314 K/mm3 (150-400); RDW Coefficient Variation 13.2 % (11.7-14.2); RDW Standard Deviation 45.9 fL (35.1-46.3); Red Blood Cell Count 4.11 M/mm3 (3.80-5.20); White Blood Cell Count 10.19 K/mm3 (4.00-11.30)
[2023-03-27 05:09] LABS: Albumin, Blood 2.3 g/dL (3.4-5.0); Albumin/Globulin Ratio 0.7 (0.8-1.8); Bilirubin, Total 0.4 mg/dL (0.1-1.0); Calcium, Blood 9.6 mg/dL (8.5-10.1); Creatinine, Blood 1.15 mg/dL (0.40-1.00); Globulin, Blood 3.1 g/dL (2.2-4.0); Potassium, Blood 5.2 mmol/L (3.5-5.5); Total Protein, Blood 5.4 g/dL (6.4-8.2)
[2023-03-27 07:55] VITALS: BP 147/96
[2023-03-27 14:29] VITALS: BP 130/70
[2023-03-27 15:00] VITALS: BP 129/118
--- NOTE | 2023-03-27 18:27 | NUR ---
SHIFT SUMMARY- PT IS A/O, PLESANT AND COOPERATIVE. SHE IS EATING AND DRINKING WELL. HER BG HAVE BEEN ELEVATED AND SHE IS RECIEVING COVERAGE. ISOLATION HAS BEEN MAINTAINED THIS SHIFT. SHE WORKED WITH PT AND OT AND TOLORATED WELL. WAS UP TO THE CHAIR FOR MEALS THIS SHIFT. POSSIBLE DX TOMORROW.
[2023-03-27 19:40] VITALS: BP 109/67
--- NOTE | 2023-03-27 23:29 | NUR ---
SHIFT SUMMERY PT RESTING IN BED AT THIS TIME, PT STATED JHSE IS FEELING MUCH BETTER. PT GIVEN TYLENOL FOR SHOULDER PAIN. CALL LIGHT IN REACH . FIRE SAFETY REVIEWED.
[2023-03-28 04:53] VITALS: BP 140/76
[2023-03-28 05:15] LABS: BASOPHILS ABSOLUTE AUTO 0.06 K/mm3 (0.00-0.23); BASOPHILS PERCENT AUTO 1 % (0-2); EOSINOPHILS PERCENT AUTO 2 % (0-6); Hematocrit 38.9 % (33.0-51.0); Hemoglobin 12.7 g/dL (11.5-16.0); IMMATURE GRAN ABSOLUTE AUTO 0.49 K/mm3 (0.00-0.10); IMMATURE GRAN PERCENT AUTO 4 % (0-1); LYMPHOCYTES ABSOLUTE AUTO 2.22 K/mm3 (0.84-5.20); LYMPHOCYTES PERCENT AUTO 18 % (21-46); MONOCYTES ABSOLUTE AUTO 1.24 K/mm3 (0.16-1.47); MONOCYTES PERCENT AUTO 10 % (4-13); Mean Corpuscular HGB 31.3 pg (26.0-34.0); Mean Corpuscular HGB Conc 32.6 g/dL (31.5-36.5); Mean Corpuscular Volume 96 fL (80-100); NEUTROPHILS ABSOLUTE AUTO 8.22 K/mm3 (1.96-9.15); NEUTROPHILS PERCENT AUTO 66 % (41-73); Platelet Count 314 K/mm3 (150-400); RDW Coefficient Variation 13.3 % (11.7-14.2); RDW Standard Deviation 47.5 fL (35.1-46.3); Red Blood Cell Count 4.06 M/mm3 (3.80-5.20); White Blood Cell Count 12.53 K/mm3 (4.00-11.30)
[2023-03-28 06:13] LABS: Albumin, Blood 2.5 g/dL (3.4-5.0); Albumin/Globulin Ratio 0.8 (0.8-1.8); Bilirubin, Total 0.5 mg/dL (0.1-1.0); Bun/Creatinine Ratio 27.5 (12.0-20.0); Calcium, Blood 10.1 mg/dL (8.5-10.1); Creatinine, Blood 1.31 mg/dL (0.40-1.00); Globulin, Blood 3.1 g/dL (2.2-4.0); Potassium, Blood 5.1 mmol/L (3.5-5.5); Total Protein, Blood 5.6 g/dL (6.4-8.2)
[2023-03-28 07:59] VITALS: BP 142/71
[2023-03-28 13:30] VITALS: BP 118/67
[2023-03-28 16:02] VITALS: BP 120/66
--- NOTE | 2023-03-28 17:21 | NUR ---
SHIFT SUMMARY- PT IS A/O, PLESANT AND COOPERATIVE. SHE IS EATING AND DRINKING WELL. WORKED WITH PT AND OT THIS SHIFT AND TOLORATED WELL. SHE WAS UP TO THE CHAIR THIS SHIFT. HER CALL LIGHT IS STACI DILL.
[2023-03-28 20:45] VITALS: BP 120/63
--- NOTE | 2023-03-29 03:38 | NUR ---
SHIFT SUMMARY- PT ALERT AND ORIENTED, 1-2PA TO THE BED. PT HAS SOME GENERALIZED WEAKNESS. PT SATS MAINTAINING AT 90% OR GREATER ON ROOM AIR. PT WENT TO BED AROUND MIDNIGHT AND HAS BEEN SLEEPING FOR EACH NURSE ROUNDING. PT IN BED SLEEPING AT THIS TIME, CALL LIGHT IN REACH NO S&S OF DISTRESS NOTED. PLAN IS FOR POSSIBLE DC TODAY. PT STILL IN ISOLATION FOR COVID AT THIS TIME.
[2023-03-29 04:57] LABS: BASOPHILS ABSOLUTE AUTO 0.05 K/mm3 (0.00-0.23); BASOPHILS PERCENT AUTO 0 % (0-2); EOSINOPHILS PERCENT AUTO 2 % (0-6); Hematocrit 37.9 % (33.0-51.0); Hemoglobin 12.3 g/dL (11.5-16.0); IMMATURE GRAN PERCENT AUTO 3 % (0-1); LYMPHOCYTES ABSOLUTE AUTO 2.14 K/mm3 (0.84-5.20); LYMPHOCYTES PERCENT AUTO 18 % (21-46); MONOCYTES ABSOLUTE AUTO 1.19 K/mm3 (0.16-1.47); MONOCYTES PERCENT AUTO 10 % (4-13); Mean Corpuscular HGB 30.9 pg (26.0-34.0); Mean Corpuscular HGB Conc 32.5 g/dL (31.5-36.5); Mean Corpuscular Volume 95 fL (80-100); Mean Platelet Volume 10.9 fL (9.1-12.4); NEUTROPHILS ABSOLUTE AUTO 8.29 K/mm3 (1.96-9.15); NEUTROPHILS PERCENT AUTO 68 % (41-73); Platelet Count 305 K/mm3 (150-400); RDW Coefficient Variation 13.4 % (11.7-14.2); Red Blood Cell Count 3.98 M/mm3 (3.80-5.20); White Blood Cell Count 12.17 K/mm3 (4.00-11.30)
[2023-03-29 05:12] VITALS: BP 131/72
[2023-03-29 05:18] LABS: Albumin, Blood 2.4 g/dL (3.4-5.0); Albumin/Globulin Ratio 0.8 (0.8-1.8); Bilirubin, Total 0.4 mg/dL (0.1-1.0); Bun/Creatinine Ratio 26.2 (12.0-20.0); Calcium, Blood 9.6 mg/dL (8.5-10.1); Creatinine, Blood 1.26 mg/dL (0.40-1.00); Globulin, Blood 3.1 g/dL (2.2-4.0); Potassium, Blood 4.9 mmol/L (3.5-5.5); Total Protein, Blood 5.5 g/dL (6.4-8.2)
[2023-03-29 08:00] VITALS: BP 147/65
[2023-03-29 15:58] VITALS: BP 127/74
[2023-03-29] MEDS ORDERED: LOSARTAN POTASS50 M1 PO (16:07)
[2023-03-29] MEDS ORDERED: Inderal 20 mg T20 MG PO (16:08)
[2023-03-29] MEDS ORDERED: SERT50 PO (16:09)
[2023-03-29] MEDS ORDERED: ZINC220 PO (16:09)
== END 2023-03-29 16:48 | disposition home health service (06) | DRG 177 ==
LOC: ER 13:01 → MEDS 13:02
PROVIDERS: Emergency Medicine; Family Medicine; Hospitalist; ADMIT Internal Medicine
PROC: XW033E5 Introduction of Remdesivir Anti-infective into Peripheral Vein, Percutaneous Approach, New Technology Group 5 (ICD-10-PCS; principal; 2023-03-19)
PROC: 3E0333Z Introduction of Anti-inflammatory into Peripheral Vein, Percutaneous Approach (ICD-10-PCS; 2023-03-19)
PROC: 8E0ZXY6 Isolation (ICD-10-PCS; 2023-03-19)
PROC: 5A09357 Assistance with Respiratory Ventilation, Less than 24 Consecutive Hours, Continuous Positive Airway Pressure (ICD-10-PCS; 2023-03-19)
PROC: 5A0935A Assistance with Respiratory Ventilation, Less than 24 Consecutive Hours, High Flow/Velocity Cannula (ICD-10-PCS; 2023-03-23)
DX: U07.1 COVID-19 (principal); J12.82 Pneumonia due to coronavirus disease 2019; J96.01 Acute respiratory failure with hypoxia; J44.0 Chronic obstructive pulmonary disease with (acute) lower respiratory infection; Z68.42 Body mass index [BMI] 45.0-49.9, adult; N18.30 Chronic kidney disease, stage 3 unspecified; F32.A Depression, unspecified; M10.9 Gout, unspecified; I12.9 Hypertensive chronic kidney disease with stage 1 through stage 4 chronic kidney disease, or unspecified chronic kidney disease; E78.5 Hyperlipidemia, unspecified; E11.22 Type 2 diabetes mellitus with diabetic chronic kidney disease; G25.0 Essential tremor; K21.9 Gastro-esophageal reflux disease without esophagitis; E66.9 Obesity, unspecified; G47.33 Obstructive sleep apnea (adult) (pediatric); Z85.3 Personal history of malignant neoplasm of breast; Z85.42 Personal history of malignant neoplasm of other parts of uterus; Z88.8 Allergy status to other drugs, medicaments and biological substances; Z91.011 Allergy to milk products; Z91.048 Other nonmedicinal substance allergy status; Z88.5 Allergy status to narcotic agent; Z86.73 Personal history of transient ischemic attack (TIA), and cerebral infarction without residual deficits; Z86.79 Personal history of other diseases of the circulatory system; Z88.7 Allergy status to serum and vaccine; Z79.899 Other long term (current) drug therapy; Z79.84 Long term (current) use of oral hypoglycemic drugs; Z79.01 Long term (current) use of anticoagulants; Z79.82 Long term (current) use of aspirin; Z79.51 Long term (current) use of inhaled steroids; Z79.2 Long term (current) use of antibiotics; Z85.828 Personal history of other malignant neoplasm of skin; Z90.710 Acquired absence of both cervix and uterus; Z90.722 Acquired absence of ovaries, bilateral; Z90.13 Acquired absence of bilateral breasts and nipples; Z96.651 Presence of right artificial knee joint; Z90.89 Acquired absence of other organs; Z87.891 Personal history of nicotine dependence; Z98.49 Cataract extraction status, unspecified eye; Z98.890 Other specified postprocedural states
CPT/HCPCS: 36415; 71045; 71046; 80053; 82728; 82947; 83615; 83735; 83880; 84100; 84145; 84484; 85025; 85379; 86140; 93005; 93010; 94640; 94644; 94660; 94664; 94762; 96365; 96375; 97110; 97116; 97162; 97165; 97530; 97535; 99285-25; A9270; J0248; J0456; J0696; J1100; J1650; J2930; J7050

== ENCOUNTER → 2024-08-29 | Outpatient (CLI) | payer OTHER ==
[~2024-08-29] MED LIST changes: +Acetaminophen650 M1 PO; +Inderal 20 mg T20 MG PO; +LOSARTAN POTASS50 M1 PO; +MONT10T PO; +OLMESARTAN MEDO40 MG PO; +PIOGLITAZONE HC15 MG PO; +SERT50 PO; +ZINC220 PO
== END | disposition home or self-care (01) ==
LOC: LAB SHORT 16:16 → LAB 16:16
DX: R30.0 Dysuria (principal)
CPT/HCPCS: 87086